=== PATIENT | male | born 1995 | race Caucasian/White ===

== ENCOUNTER 2017-08-17 18:26 | Emergency (ER) | payer SELFPAY ==
[2017-08-17 18:29] VITALS: BP 120/71; BMI 21.1
--- NOTE | 2017-08-17 19:05 | RAD ---
Examination: Right hand, three views History: Injury Findings: No definite fracture, dislocation or articular deformity. Impression: No acute findings right hand. Reported By:
--- NOTE | 2017-08-17 19:25 | DR.EXTPAIN ---
HPI - Time seen Time seen: 18:20 - PCP Primary Care Physician: NFD - Complaint/Symptoms Chief Complaint:: PT. STATES HE HIT HIS RIGHT HAND ON A BOARD AT WORK 2-3 DAYS AGO. PT. C/O PAIN TO RIGHT HAND. AREA IS BRUISED UNDER MIDDLE DIGIT ON RIGHT HAND. - Nurses notes reviewed Nurses Notes Review: Yes - Source History Provided: Patient - Mode of arrival Mode of Arrival: Ambulatory - Timing Onset of Chief Complaint: 08/14/17 PMH - PMH Past Medical History: No Past Surgical History: Yes Surgical History: Other Past Surgical History Comment: EARS - Family History History of Family Medical Conditions: Yes Family Medical History: Cancer - Social History Does patient currently use any type of tobacco product: No Have you used tobacco products in the last 12 months: No Type of Tobacco Use: None Does any household member use tobacco: No Alcohol Use: None Do you use any recreational Drugs:: No Lives With: Significant Other Lives Where: Home - infectious screening In the last 2 months have you had wt loss of >10#?: NO Have you had fever, night sweats or hemotysis?: No Have you traveled outside the country in the last 6 months?: No Isolation: Standard ROS - Review of Systems Constitutional: No Symptoms Reported Eyes: No Symptoms Reported ENTM: No Symptoms Reported Respiratoy: No Symptoms Reported Cardiovascular: No Symptoms Reported Gastrointestinal/Abdominal: No Symptoms Reported Genitourinary: No Symptoms Reported Neurological: No Symptoms Reported Musculoskeletal: Hand (pain, right) Integumentary: No Symptoms Reported Hematologic/Lymphatic: No Symptoms Reported Endocrine: No Symptoms Reported Psychiatric: No Symptoms Reported All Other Systems: Reviewed and Negative PE - Vital Signs Vitals: Temperature 98.6 F Pulse Rate 85 Respiratory Rate 17 Blood Pressure 120/71 O2 Sat by Pulse Oximetry 100 - General Limitations: No Limitations General Appearance: Alert, In No Apparent Distress - Head Head Exam: Normal Inspection - Eyes Eye exam: Normal Appearance - ENT ENT Exam: Normal Exam - Neck Neck Exam: Normal Inspection, Full ROM, Trachea Midline - Chest Chest Inspection: Normal Inspection - Respiratory Respiratory Exam: Normal Lung Sounds Bilat - Cardiovascular Cardiovascular Exam: Regular Rate, Normal Rhythm, +S1, +S2 - Abdominal Exam Abdominal Exam: Normal Inspection, Normal Bowel Sounds, Soft - Extremities Extremities Exam: Normal Inspection, Full ROM, Normal Capillary Refill - Upper Extremities Hand Exam: Normal Inspection, Full ROM, Other (a bruise at the 3rd MCP joint on its palmar surface) - Neurological Neurological Exam: Alert, Oriented X3, CN II-XII Intact - Psychiatric Psychiatric Exam: Normal Affect, Normal Mood - Skin Skin Exam: Warm, Dry, Intact, Normal Color ROR - XRAY XRAY Interpreted by: Self (rt. hand: No fracture or dislocation noted.) - Diagnosis Discharge Problem: Contusion of right hand - Discharge Plan Disposition: 01 HOME, SELF-CARE Condition: Stable - Follow ups/Referrals Follow ups/Referrals: NFD,None [Primary Care Provider] - 3 days - Instructions Instructions: Hand Contusion, [id number]
== END 2017-08-17 19:30 | disposition home or self-care (01) ==
LOC: ER 18:34
DX: S60.221A Contusion of right hand, initial encounter (principal); W01.198A Fall on same level from slipping, tripping and stumbling with subsequent striking against other object, initial encounter; Y92.69 Other specified industrial and construction area as the place of occurrence of the external cause
CPT/HCPCS: 73130; 99282